=== PATIENT | male | born 1985 | race Caucasian/White ===

== ENCOUNTER → 2024-05-22 06:46 | Outpatient (CLI) | payer OTHER, SELFPAY ==
--- NOTE | 2024-05-22 06:49 | DI.ECHO.S_ITS ---
[facility] : : [address] : : [place] : : [id number] : : Phone: [phone] Echocardiogram Report + + :Name: JUAN JIMENEZ Study Date: 05/22/2024 Height: 67 in : :[facility] ReadingLocation: Weight: 170 lb : : Gender: Male BSA: 1.9 m2 : :: 1985 Age: 38 yrs BP: 114/74 mmHg: :Reason For Study: SYNCOPE AND COLLAPSE : :Ordering Physician: ISELA, : :MONIKA Performed By: Errol Andersen : :Referring: [id number] : + + Interpretation Summary The left ventricle is normal in size. The left ventricular ejection fraction is normal. The ejection fraction is estimated to be 55-60%. The right ventricle is normal in size and function. No significant valvular pathology seen. The IVC is of normal diameter and collapses greater than 50% with a sniff. This suggests a low right atrial pressure of 3 mm Hg. Procedure: A two-dimensional transthoracic echocardiogram with color flow and Doppler was performed. The study quality was technically good. There is no prior echocardiogram noted for this patient. The patient was in sinus bradycardia with heart rates between 50-59 bpm during the exam. Left Ventricle: The left ventricle is normal in size. There is normal left ventricular wall thickness. There is no thrombus. The ejection fraction is estimated to be 55-60%. The left ventricular ejection fraction is normal. There are no focal wall motion abnormalities. Diastolic parameters suggest probable normal left ventricular diastolic function and normal filling pressures. Right Ventricle: The right ventricle is normal in size and function. Atria: The left atrial size is normal. The right atrium is mildly dilated. There is no Doppler evidence for an atrial septal defect. Mitral Valve: The mitral valve is normal in structure and function. Trivial to mild MR. Aortic Valve: The aortic valve is trileaflet. The aortic valve opens well. No aortic regurgitation is present. Tricuspid Valve: The tricuspid valve is normal in structure and function. There is trace tricuspid regurgitation. The right ventricular systolic pressure is estimated to be at least 23 mmHg based on an estimated right atrial pressure of 3 mm Hg. Pulmonic Valve: The pulmonic valve leaflets are thin and pliable; valve motion is normal. There is trace pulmonic regurgitation. Great Vessels: The aortic root is normal size. The dimensions of the ascending aorta are normal. The pulmonary artery is normal size. The IVC is of normal diameter and collapses greater than 50% with a sniff. This suggests a low right atrial pressure of 3 mm Hg. Pericardium/ Pleura There is no pericardial effusion. There is no pleural effusion. MMode/2D Measurements & Calculations LVIDd: 4.8 cm LVOT diam: 2.3 cm LVIDs: 3.2 cm Ao root diam: 3.2 cm FS: 32.2 % asc Aorta Diam: 3.0 cm EPSS: 0.38 cm Ao Arch Diam (Prox Trans): 2.2 cm IVSd: 0.83 cm LVPWd: 0.77 cm LV aguilar. diameter/BSA (cm/m^2): 2.5 LV sys. diameter/BSA (cm/m^2): 1.7 LA A2 area: 16.5 cm2 RA long axis: 5.2 cm LA A4 area: 17.7 cm2 RA area: 17.3 cm2 LA length (vol): 5.2 cm RA vol: 48.6 ml LA vol: 47.9 ml RA : 25.8 ml/m2 LA vol index: 25.4 ml/m2 IVC diam: 1.8 cm RVD1 (basal): 3.8 cm RVD2 (mid): 3.0 cm TAPSE: 2.7 cm Doppler Measurements & Calculations Ao V2 max: 119.8 cm/sec LVOT Max Kelton: 113.1 cm/sec Ao V2 mean: 78.8 cm/sec LV V1 max P.1 mmHg Ao max P.7 mmHg LV V1 VTI: 24.6 cm Ao mean P.8 mmHg MOLLY(I,D): 3.7 cm2 Ao V2 VTI: 26.4 cm MOLLY(V,D): 3.8 cm2 sev ratio: 0.93 MOLLY indexed to BSA (cm^2/m^2): 2.0 MV E max kelton: 88.6 cm/sec TR max kelton: 222.8 cm/sec MV A max kelton: 36.6 cm/sec TR max P.9 mmHg MV E/A: 2.4 Med Peak E' Kelton: 13.7 cm/sec E/E' med: 6.5 Lat Peak E' Kelton: 14.0 cm/sec E/E' lat: 6.3 E/e' average: 6.4 MV dec time: 0.22 sec SV(LVOT): 98.7 ml Reading Physician:12:31 PM
== END ==
PROVIDERS: Referring Provider Physician Assistant; Visit Provider Physician Assistant
DX: Z00.00 Encounter for general adult medical examination without abnormal findings (principal)
CPT/HCPCS: 93306